=== PATIENT | male | born 1945 ===

== ENCOUNTER 2025-06-26 20:17 | Emergency (ER) | payer OTHER ==
[~2025-06-26 20:17] MED LIST: Sodium Chloride 0.9% 10 ML Syringe FLUSH PRN
[2025-06-26 21:01] LABS: BASOPHILS ABSOLUTE AUTO 0.02 K/uL (0.00-0.20); BASOPHILS PERCENT AUTO 0.2 % (0.0-2.0); EOSINOPHILS ABSOLUTE AUTO 0.04 K/uL (0.00-0.50); EOSINOPHILS PERCENT AUTO 0.4 % (0.0-5.0); IMMATURE GRAN ABSOLUTE AUTO 0.03 10^3/uL (0.00-0.04); IMMATURE GRAN PERCENT AUTO 0.3 % (0.0-0.4); LYMPHOCYTES ABSOLUTE AUTO 0.80 K/uL (0.50-3.50); LYMPHOCYTES PERCENT AUTO 7.3 % (10.0-50.0); MONOCYTES ABSOLUTE AUTO 1.19 K/uL (0.00-1.00); MONOCYTES PERCENT AUTO 10.9 % (2.0-14.0); NEUTROPHILS ABSOLUTE AUTO 8.88 K/uL (1.40-7.00); NEUTROPHILS PERCENT AUTO 80.9 % (45.0-80.0); PLATELET COUNT,PLT 156 K/uL (150-350); RED BLOOD CELL COUNT 4.75 M/uL (4.33-5.41); RED CELL DISTRIBUTION WIDTH 12.2 % (11.2-14.1); WHITE BLOOD CELL COUNT,WBC 11.0 K/uL (4.0-10.2)
[2025-06-26 21:16] LABS: LACTIC ACID 4.8 mmol/L (0.4-2.0)
[2025-06-26 21:18] LABS: ALANINE AMINOTRANSFERASE,ALT 35 U/L (12-78); ASPARTATE AMNIOTRANSFERASE,AST 63 U/L (15-37); BILIRUBIN TOTAL 0.8 mg/dL (0.2-1.0); BLOOD UREA NITROGEN,BUN 19 mg/dL (7-18); CARBON DIOXIDE,CO2 24.3 mmol/L (21.0-32.0); CHLORIDE,CL 106 mmol/L (98-107); CREATININE 1.50 mg/dL (0.51-1.17); GLUCOSE RANDOM 125 mg/dL (70-99); POTASSIUM,K 4.8 mmol/L (3.5-5.1); PRO B-TYPE NATRIUR PEPT,BNPPRO 1211 pg/mL (0-125); PROTEIN TOTAL,TP 7.3 g/dL (6.4-8.2); SODIUM,NA 144 mmol/L (136-145)
[2025-06-26 21:19] LABS: ESTIMATED GFR 47 mL/min (>=60)
[2025-06-26 22:01] LABS: APPEARANCE,URINE SLIGHTLY CLOUDY; GLUCOSE,URINE NEGATIVE (NEGATIVE); OCCULT BLOOD,URINE NEGATIVE (NEGATIVE)
== END 2025-06-26 21:55 ==
LOC: LL.ED 20:17 → MERGE 20:17 → LL.ED 21:55
DX: I47.10 Supraventricular tachycardia, unspecified (principal); R74.02 Elevation of levels of lactic acid dehydrogenase [LDH]
CPT/HCPCS: 36415; 51702; 70450; 71045; 80053; 81003; 83605; 83735; 83880; 84484; 85025; 85379; 86140; 87428-QW; 93005; 93010; 99284; 99285